=== PATIENT | female | born 2005 | race African-American/Black ===

== ENCOUNTER 2025-09-27 23:29 | Emergency (ER) | payer OTHER ==
[~2025-09-27] VITALS: Ht 152.4 cm; Wt 69.6 kg
[2025-09-27] MEDS: ALBUTEROL (0.083%) 2.5MG/3ML NEB HHN SCH (23:56)
[2025-09-27 23:58] VITALS: PULSE 91; RESP 22; O2SAT 95
[2025-09-28] MEDS: METHYLPREDNISOLONE SOD SUCC 125MG/2ML (ACT-O-VIAL) IV ONE (00:08)
[2025-09-28] MEDS: ONDANSETRON HCL 4MG/2ML INJ IV ONE (00:09)
[2025-09-28] MEDS: KETOROLAC 15MG/ML VIAL IV ONE (00:09)
[2025-09-28] MEDS: SODIUM CHLORIDE 0.9% 1,000 ML IV ONE (00:10)
[2025-09-28 00:27] LABS: BASOPHILS % 0.3 % (0.0-2.0); EOSINOPHILS % 0.0 % (0.0-5.0); HEMATOCRIT. 41.8 % (36.0-48.0); HEMOGLOBIN. 13.9 g/dL (12.0-16.0); LYMPHOCYTES % 26.1 % (20.0-50.0); MEAN PLATELET VOLUME 9.0 fl (7.4-10.4); MONOCYTES % 8.3 % (2.0-8.0); NEUTROPHILS % 65.3 % (40.0-76.0); PLATELET 156 x1000/uL (130-400); RED BLOOD CELL COUNT 4.65 mill/uL (4.2-5.4); RED CELL DISTRIBUTION WIDTH 14.0 % (11.6-14.6)
[2025-09-28 00:40] LABS: CREATININE 0.8 mg/dL (0.6-1.0); UREA NITROGEN BLOOD 7 mg/dL (9-23)
[2025-09-28 00:41] LABS: ASPARTATE AMINOTRANSFERASE 33 IU/L (<34); PROTEIN TOTAL 8.0 g/dL (6.0-8.3); TROPONIN I HIGH SENSITIVITY 11 ng/L (3.0-34)
[2025-09-28 00:42] LABS: BILIRUBIN DIRECT 0.2 mg/dL (<=3.0); BILIRUBIN TOTAL 0.5 mg/dL (0.1-1.0)
[2025-09-28] MEDS ORDERED: ALBU18HF2 IH (01:25)
[2025-09-28] MEDS ORDERED: P50 MT (01:25)
[2025-09-28] MEDS: POTASSIUM CHLORIDE 20MEQ/PACKET PO ONE (01:29)
[2025-09-28 01:43] VITALS: BP 111/69; PULSE 77; RESP 18; TEMP 36.8; O2SAT 99
== END 2025-09-28 01:49 | disposition home or self-care (01) ==
LOC: ER 23:29 → CMPBEDREQ 09-29 10:34
DX: J45.901 Unspecified asthma with (acute) exacerbation (principal); E87.6 Hypokalemia; D57.1 Sickle-cell disease without crisis
CPT/HCPCS: 80076; 80048; 83880; 83735; 85025; 85044; 84484; 36415; 71045; 94640; 93005; 99285; 96361; 96374; 96375; J2919; Z7610 ×2; J1885; J2405; J7030; 94760